=== PATIENT | male | born 1985 | race Caucasian/White ===

== ENCOUNTER → 2017-02-07 | Outpatient (CLI) | payer OTHER ==
[2017-02-07 14:37] LABS: BASO % 0.9 %; BASO ABS # 0.06 K/uL (0-0.2); COMPLETE YES; EOS % 2.3 %; HEMATOCRIT 48.3 % (42-52); IG% 0.6 %; LYMPH % 37.3 %; LYMPH ABS # 2.58 K/uL (1.2-3.4); MEAN CELL VOLUME 93.1 fL (80-100); MEAN CORPUSCULAR HEMOGLOBIN 30.8 pg (25-34); MEAN CORPUSCULAR HGB CONC 33.1 g/dl (32-36); MEAN PLATELET VOLUME 9.9 fL (7.4-10.4); MONO % 6.8 %; NEUT % 52.1 %; PLATELET COUNT 291 K/uL (130-400); RED BLOOD COUNT 5.19 M/uL (4.7-6.1); WHITE BLOOD COUNT 6.91 K/uL (4.8-10.8)
[2017-02-07 14:59] LABS: ALT/SGPT 28 U/L (12-78); BLOOD UREA NITROGEN 10 mg/dl (7-18); BUN/CREATININE RATIO 11.4 (10-20); CARBON DIOXIDE 27 mmol/L (21-32); CHLORIDE 107 mmol/L (98-107); CHOLESTEROL 312 mg/dl (0-200); CREATININE 0.87 mg/dl (0.60-1.40); GLUCOSE 104 mg/dl (70-99); POTASSIUM 4.5 mmol/L (3.5-5.1); SODIUM 144 mmol/L (136-145)
[2017-02-07 15:00] LABS: CALCIUM 8.9 mg/dl (8.5-10.1)
[2017-02-07 15:09] LABS: ALKALINE PHOSPHATASE 73 U/L (45-117); AST/SGOT 35 U/L (15-37); CHOLESTEROL/HDL RATIO 6.9; HDL CHOLESTEROL 45 mg/dl; THYROID STIMULATING HORMONE 0.831 uIu/ml (0.300-4.500); TRIGLYCERIDES 405 mg/dl (0-150)
== END | disposition home or self-care (01) ==
LOC: C.LAB1850 12:29
PROVIDERS: ATTEND Physician Assistant
DX: R63.5 Abnormal weight gain (principal); R10.31 Right lower quadrant pain

== ENCOUNTER → 2017-02-07 | Outpatient (CLI) | payer OTHER ==
--- NOTE | 2017-02-07 12:39 | DIAGNOSTIC IMAGING REPORT ---
Ultrasound right thigh EXTREMITY NONVASCULAR LIMITED CLINICAL HISTORY: Nodule. Pain. TECHNIQUE: Ultrasound COMPARISON STUDY: None FINDINGS: Echogenicity of the subcutaneous fat as well as associated muscular structures is unremarkable. A well-defined discrete mass or collection is not appreciated. IMPRESSION: Negative study Electronically signed by: Yovani Burnett M.D. 02/07/2017 12:38 PM Dictated Date/Time: 02/07/2017 12:36 PM
--- NOTE | 2017-02-07 12:39 | DIAGNOSTIC IMAGING REPORT ---
RIGHT LOWER QUADRANT ABDOMINAL ULTRASOUND HISTORY: Right lower quadrant pain and tenderness. Evaluate appendix. COMPARISON: None. FINDINGS: The appendix was not visualized by sonography. No mass, fluid collection or other sonographic abdomen was identified within the right lower quadrant. IMPRESSION: Nonvisualization of the appendix. If persistent clinical concern for acute appendicitis, a CT is recommended. Electronically signed by: Andrea Moore M.D. 02/07/2017 12:38 PM Dictated Date/Time: 02/07/2017 12:37 PM
== END | disposition home or self-care (01) ==
LOC: C.ULTR 11:38 → EDBD 12:30
PROVIDERS: ATTEND Physician Assistant
DX: R10.31 Right lower quadrant pain (principal); M79.604 Pain in right leg